=== PATIENT | male | born 1955 | race Caucasian/White ===

== ENCOUNTER 2018-01-08 02:30 | Emergency (ER) | payer OTHER ==
[~2018-01-08] VITALS: Ht 172.7 cm; Wt 65.9 kg
[2018-01-08] MEDS ORDERED: PRED1 PO (02:52)
[2018-01-08] MEDS ORDERED: HYDR25TA PO (02:52)
[2018-01-08 04:45] LABS: AMPHET/METH SCREEN,URINE NEGATIVE (NEGATIVE); BARBITURATE SCREEN, URINE NEGATIVE (NEGATIVE); BENZODIAZEPINES SCREEN,URINE NEGATIVE (NEGATIVE); CANNABINOID SCREEN,URINE NEGATIVE (NEGATIVE); COCAINE SCREEN,URINE NEGATIVE (NEGATIVE); METHADONE SCREEN, URINE NEGATIVE (NEGATIVE); OPIATE SCREEN,URINE NEGATIVE (NEGATIVE)
[2018-01-08 04:46] LABS: PHENCYCLIDINE SCREEN,URINE NEGATIVE (NEGATIVE)
[2018-01-08 04:49] VITALS: BP 139/71
== END 2018-01-08 05:00 | disposition home or self-care (01) ==
LOC: EMS 02:33
DX: Z71.1 Person with feared health complaint in whom no diagnosis is made (principal); I10 Essential (primary) hypertension; J44.9 Chronic obstructive pulmonary disease, unspecified; F17.210 Nicotine dependence, cigarettes, uncomplicated; Z88.5 Allergy status to narcotic agent
CPT/HCPCS: 99285

== ENCOUNTER 2018-01-17 19:40 | Emergency (ER) | payer OTHER ==
[~2018-01-17] VITALS: Ht 170.2 cm; Wt 63.6 kg
[~2018-01-17 19:40] MED LIST: HYDR25TA PO; PRED1 PO
[2018-01-17] MEDS ORDERED: IBUPROFEN 800 MG TABLET PO ONE (22:30)
[2018-01-17 22:50] VITALS: BP 133/74
== END 2018-01-17 23:17 | disposition home or self-care (01) ==
LOC: EMS 19:41
DX: M25.571 Pain in right ankle and joints of right foot (principal); J44.9 Chronic obstructive pulmonary disease, unspecified; I10 Essential (primary) hypertension; F17.210 Nicotine dependence, cigarettes, uncomplicated; Z88.5 Allergy status to narcotic agent
CPT/HCPCS: 99284; 99406

== ENCOUNTER 2018-01-18 08:41 | Emergency (ER) | payer OTHER ==
[~2018-01-18] VITALS: Ht 172.7 cm; Wt 63.5 kg
[2018-01-18 08:42] VITALS: BP 135/74
== END 2018-01-18 10:25 | disposition home or self-care (01) ==
LOC: EMS 08:44
DX: M25.571 Pain in right ankle and joints of right foot (principal); M25.471 Effusion, right ankle; J44.9 Chronic obstructive pulmonary disease, unspecified; I10 Essential (primary) hypertension; M19.90 Unspecified osteoarthritis, unspecified site; F17.210 Nicotine dependence, cigarettes, uncomplicated; Z88.5 Allergy status to narcotic agent; Z95.0 Presence of cardiac pacemaker
CPT/HCPCS: 99284